=== PATIENT | male | born 1990 | race Asian ===

== ENCOUNTER 2020-04-08 16:35 | Outpatient (REF) | payer BC, SELFPAY ==
--- NOTE | 2020-04-08 | CT_ITS ---
EXAMINATION: CT CHEST WITHOUT CONTRAST CLINICAL INFORMATION: Pulmonary nodules COMPARISON: Previous chest CT August and September 2019 TECHNIQUE: Multidetector volumetric CT imaging of the chest was done. Axial MIP volume rendering provided. Sagittal and coronal reformatted images were obtained. This CT examination was performed using dose optimization techniques as appropriate, variously including the following: *Automated exposure control *Adjustment of mA and/or kV according to patient size (this includes techniques or standardized protocols for targeted exams where dose is matched to indication/reason for exam; i.e. 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 The previously identified pleural-based mass adjacent to the right lower lobe has been removed. The previously identified peripheral infiltrates and areas of increased groundglass attenuation seen throughout both lungs is no longer seen. MEDIASTINUM: The mediastinum is normal. PLEURA: There is no pleural effusion. No pleural mass or thickening. AXILLA: No lymphadenopathy. UPPER ABDOMEN: Unremarkable. OSSEOUS STRUCTURES: Unremarkable. CT/CT chest wo con IMPRESSION: New postsurgical changes to the right middle lobe. Previously identified peripheral infiltrates and areas of groundglass attenuation are no longer seen.
== END 2020-04-08 16:36 | disposition home or self-care (01) ==
LOC: HO.CT 16:35
PROVIDERS: Visit Provider Surgery
DX: R91.1 Solitary pulmonary nodule (principal)
CPT/HCPCS: 71250

== ENCOUNTER → 2020-05-03 09:04 | Outpatient (BNVA) | payer BC, SELFPAY | PROVIDERS: PCP Internal Medicine; Referring Provider Internal Medicine; Visit Provider Surgery | DX: D49.2 Neoplasm of unspecified behavior of bone, soft tissue, and skin (principal) | CPT/HCPCS: 99214 ==

== ENCOUNTER 2022-06-09 16:31 | Outpatient (REF) | payer OTHER, SELFPAY ==
--- NOTE | ~2022-06-09 | CT_ITS ---
EXAMINATION: CT CHEST WITHOUT CONTRAST CLINICAL INFORMATION: Neoplasm. COMPARISON: 04/08/2020 and studies dating back to 08/30/2019. TECHNIQUE: Multidetector volumetric CT imaging of the chest was done. Axial MIP volume rendering provided. Sagittal and coronal reformatted images were obtained. This CT examination was performed using dose optimization techniques as appropriate, variously including the following: *Automated exposure control *Adjustment of mA and/or kV according to patient size (this includes techniques or standardized protocols for targeted exams where dose is matched to indication/reason for exam; i.e. extremities or head) *Use of iterative reconstruction technique DLP: 207 mGy-cm FINDINGS: LUNGS: Central airways are patent. No significant bronchial wall thickening is seen. No bronchiectasis is noted. No emphysematous change seen. No confluent parenchymal disease is noted. There is postsurgical change seen within the right middle lobe. No suspicious lung nodules identified. MEDIASTINUM: Heart normal size. No pericardial effusion. No thoracic aortic aneurysm. Visualized portions of the thyroid gland unremarkable. CORONARY ARTERY CALCIFICATION: None visualized on this study. PLEURA: There is no pleural effusion. No pleural mass or thickening. AXILLA: No lymphadenopathy. UPPER ABDOMEN: Unremarkable. OSSEOUS STRUCTURES: Unremarkable. CT/CT chest wo IV con IMPRESSION: Status post right middle lobe surgery. No suspicious lung nodules identified. Fleischner guidelines were followed.
== END 2022-06-09 16:32 | disposition home or self-care (01) ==
LOC: HO.CT 16:31
PROVIDERS: PCP Family Medicine; Visit Provider Family Medicine
DX: D49.2 Neoplasm of unspecified behavior of bone, soft tissue, and skin (principal)
CPT/HCPCS: 71250

== ENCOUNTER 2022-11-10 10:35 | Outpatient (REF) | payer OTHER, SELFPAY ==
[2022-11-10 15:52] LABS: Influenza A PCR NEGATIVE (Negative); Influenza B PCR NEGATIVE (Negative); Resp Syncy Virus RNA Qual PCR NEGATIVE (Negative); SARS COV2 PCR INHOUSE NEGATIVE (Negative)
== END 2022-11-10 10:36 | disposition home or self-care (01) ==
LOC: HO.LAB 10:35
PROVIDERS: Visit Provider Physician Assistant
DX: Z20.822 Contact with and (suspected) exposure to COVID-19 (principal); B34.9 Viral infection, unspecified
CPT/HCPCS: 0241U

== ENCOUNTER 2023-02-25 16:07 | Outpatient (AMB) | payer OTHER, SELFPAY ==
[2023-02-25 16:17] VITALS: BP 116/72; PULSE 76; TEMP 36.7; O2SAT 98; BMI 28.9
--- NOTE | 2023-02-25 16:17 | MHC.OFFWIV ---
Intake Vital Signs 02/25/23 16:17 Height 5 ft 9 in Weight 196 lb BMI 28.9 BP 116/72 Blood Pressure Location Rt brachial Position Sitting Pulse 76 Pulse Source Pulse Oximeter Temp 98.1 F Temp Source Temporal Artery Scan Pulse Oximetry (%) 98 Oxygen Delivery Method Room Air Intake Visit Reasons: EST/bee sting on right hand Intake Note: Patient is here today for bee sting on Rt hand Patient Tobacco Use Status: Former Tobacco user Allergies No Known Allergies Allergy (Verified 02/25/23 16:17) Do you need a note to return to daycare/school/sports/work: Yes HPI HPI Comments History of Present Illness Details The patient presents to urgent care for evaluation of left hand swelling. He was stung by a wasp yesterday afternoon around 15:00. He states that it swelled a little bit yesterday took some Benadryl in the evening. He also developed some hives on his arm. He has an allergy to insect stings. The Benadryl alleviated some of the swelling and the hives. He did not take another dose this morning as he had to go to work. Throughout the day he noted that his hand became more swollen and red. His coworkers urged not to come in for evaluation. There is some mild achiness of the hand but no significant tenderness and no fever. [facility] Medical History History of COVID-19 (~08/2019) Personal history of nicotine dependence Solitary fibrous tumor Surgical History History of lobectomy of lung (~10/2019) Social History Patient Tobacco Use Status: Former Tobacco user Cigarette Packs Per Day: 1 e-Cigarette/Vaping Use: Never Used Second Hand Smoke Exposure: No Current occupational status: employed Current occupational exposures/hazards: No Cognitive needs: No Hearing needs: No Vision needs: No Review of Systems Eyes Reports no additional complaints ENT Reports Normal hearing present and Denies dysphagia Card Denies dyspnea and Denies slow heart rate Resp Denies cough and Denies dyspnea GI Denies dysphagia and Denies heartburn Denies dysuria Musc Denies tingling Skin/Breast Reports lesions, Denies skin ulcer and Denies unusual bruising Neuro Reports Normal hearing present, Denies Sensory deficit (Neuro), Denies tingling and Denies paresthesias Physical Exam Vital Signs: Last Vital Signs Temp 98.1 F 02/25/23 16:17 Pulse 76 02/25/23 16:17 BP 116/72 02/25/23 16:17 Pulse Ox 98 02/25/23 16:17 Oxygen Delivery Method Room Air 02/25/23 16:17 BMI result Body Mass Index 28.9 Const General: healthy appearing and no acute distress Resp Effort & Inspection: normal respiratory effort and able to speak in complete sentences Skin Other: Left hand dorsum aspect: Moderate soft tissue swelling and erythema. Minimal tenderness, no fluctuance. Slightly warm to the touch. Swelling extends to the wrist and then stops. Patient has full range of motion of the digits without eliciting tenderness. 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 He is right-hand dominant. Neuro Cranial nerves: Yes Normal hearing present Sensory Exam: No Sensory deficit (Neuro) Assessment & Plan Assessment & Plan (1) Insect sting: Code(s): T63.481A - Toxic effect of venom of other arthropod, accidental (unintentional), initial encounter Plan Left-handed 6 standing. I do not feel that this is infected at this time I think the amount of swelling is consistent with the staying however he reports it is worsening. Will recommend Benadryl 50 mg every 4 hours from tonight through tomorrow and re-evaluate tomorrow. 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 Coding Level of Care Code Est Pt Level 3 (66166) Diagnoses Insect sting T63.481A
== END 2023-02-25 16:37 | disposition home or self-care (01) ==
PROVIDERS: PCP Family Medicine; Visit Provider Emergency Medicine
DX: T63.481A Toxic effect of venom of other arthropod, accidental (unintentional), initial encounter (principal)
CPT/HCPCS: 99213

== ENCOUNTER 2023-11-11 15:26 | Outpatient (AMB) | payer OTHER, SELFPAY ==
--- NOTE | 2023-11-11 15:53 | MHC.PC.OV ---
Vital Signs 11/11/23 15:54 Height 5 ft 9 in Weight 200 lb BMI 29.5 BP 112/70 Blood Pressure Location Lt brachial Position Sitting Pulse 67 Pulse Source Pulse Oximeter Pulse Oximetry (%) 97 Oxygen Delivery Method Room Air Intake Visit Reasons: Physical Exam Intake Note: Patient is here for a physical today, would like sleep study referral, wakes up at around 3 am, and snoring, and headaches. Allergies venom-wasp Allergy (Mild, Verified 11/11/23 15:58) Swelling Medication List - Last Reconciled 11/11/23 by Nino Kwan MD No Known Home Meds Tobacco use date assessed: 11/11/23 Dental Screening Dental Screen Date: 11/11/23 Did you have a dental visit in the last 12 months?: Yes Did you have a dental problem in the last 6 months where you did not have access to dental care?: No Was dental information given to patient?: Patient has dentist HPI Physical Exam HPI Details 33 y/o male presents for a CPE with f/u labs and health maintenance. No recent labs to review. Pt is requesting a sleep study. He notes he has not been eating a healthy diet but he has been trying to make changes. Pt notes hx of an insect bite which caused his arm to swell. [facility] Medical History Personal history of nicotine dependence History of COVID-19 (~08/2019) Solitary fibrous tumor Surgical History History of lobectomy of lung (~10/2019) Social History Housing: House Patient Tobacco Use Status: Former Tobacco user Cigarette Packs Per Day: 1 e-Cigarette/Vaping Use: Never Used Second Hand Smoke Exposure: No Current occupational status: employed Current occupational exposures/hazards: No Cognitive needs: No Hearing needs: No Vision needs: No Questionnaire ELSA-7 AMB Questionnaire ELSA-7 Date ELSA - 7 assessed: 05/22/22 Source: Developed by Drs. Jaswinder Pavon, Alla Sheets, Paolo Salmon and colleagues, with an educational rory from [employer]. Review of Systems Const Denies chills, Denies fatigue, Denies fever(s), Denies headache(s) and Denies weakness Eyes Denies change in vision ENT Denies dizziness, Denies headache(s), Denies hearing loss, Denies nasal congestion, Denies sinus pain, Denies sinus pressure and Denies sore throat Card Denies chest pain, Denies lightheadedness, Denies dyspnea and Denies other (palpitations) Resp Denies cough, Denies dyspnea and Denies wheezing GI Denies abdominal pain, Denies melena, Denies hematochezia, Denies change in bowel habits, Denies dyspepsia and Denies nausea Denies hematuria and Denies dysuria Musc Denies abnormal gait, Denies myalgias, Denies arthralgias, Denies numbness and Denies tingling Skin/Breast Denies rash, Denies unusual bruising and Denies wounds Neuro Denies abnormal gait, Denies dizziness, Denies headache(s), Denies memory loss, Denies numbness, Denies Sensory deficit (Neuro), Denies tingling and Denies weakness Psych Denies anxiety, Denies depression and Denies memory loss Endo Denies cold intolerance, Denies fatigue, Denies heat intolerance, Denies polydipsia and Denies polyuria Wally/Lymph Denies easy bleeding and Denies easy bruising Aller/Immun Denies wheezing Physical exam (Primary Care) Vital Signs: Last Vital Signs Pulse 67 11/11/23 15:54 BP 112/70 11/11/23 15:54 Pulse Ox 97 11/11/23 15:54 Oxygen Delivery Method Room Air 11/11/23 15:54 BMI result Body Mass Index 29.5 Tobacco/Smoking Status: Tobacco use Status Tobacco use date assessed 11/11/23 11/11/23 16:02 Patient Tobacco Use Status Former Tobacco user 11/11/23 16:02 e-Cigarette/Vaping Use Never Used 11/11/23 16:02 Const General: no acute distress, well developed, alert and awake Nutritional Appearance: well nourished Orientation/consciousness: patient oriented x3 HENMT Head: Yes normocephalic and Yes atraumatic Ears: hearing grossly normal bilaterally and TM's normal bilaterally General nose exam: Normal external nose present and Normal nares present Mouth: Normal oral and palatal mucosa present and moist mucous membranes Teeth and gingiva: dentition normal Throat: Yes posterior oropharynx normal Eyes General: appearance normal, both eyes and all related structures Pupils: Equal, round and reactive pupils present and Pupil accommodation reflex normal EOM: EOMs intact bilaterally Neck Neck: Yes normal visual inspection, Yes no lymphadenopathy and Yes trachea midline Thyroid: Thyroid normal Carotids: no bruits Lymphatic: no lymphadenopathy noted Chest Chest palpation & inspection: normal inspection of the chest Resp Effort & Inspection: normal respiratory effort Auscultation: clear to auscultation bilaterally Cardio Rate: regular rate Rhythm: regular rhythm Heart sounds: S1 normal heart sound present, S2 normal heart sound present, no gallops, no murmurs and no rubs Bruits: no abdominal aortic bruits and no carotid bruits GI Palpation (GI): No Abdominal aortic bruit present, Soft to palpation, nontender, No hepatosplenomegaly present and No Rebound tenderness present Auscultation: normal bowel sounds General: Yes no CVA tenderness Back/Spine/Pelvis Back: no CVA tenderness Cervical Spine: cervical ROM normal and No Cervical spine tenderness Thoracic/Lumbar Spine: thoraco-lumbar ROM normal, No pain with thoraco-lumbar ROM, No thoracic spinal tenderness and No lumbar spinal tenderness Skin Lesions: no lesions Rashes: no rashes Trauma: no lacerations or abrasions Wounds: no wounds Nails: normal Neuro General: patient oriented x3 Cranial nerves: Yes Equal, round and reactive pupils present Cognition (Neuro): normal cognition Gait exam (Neuro): Normal gait present Motor exam (neuro): 5/5 motor strength present throughout Sensory Exam: No Sensory deficit (Neuro) Deep tendon reflexes (DTR's): Right patellar reflex intensity grade: 2+ and Left patellar reflex intensity grade: 2+ Extrem General: Yes normal to inspection and No edema Psych Appearance: grossly normal Affect: normal affect Attitude: cooperative Thought process: Normal thought process present Assessment and Plan Assessment & Plan (1) Adult general medical exam: Code(s): Z00.00 - Encounter for general adult medical examination without abnormal findings Plan: 33-year-old?male?presents?for?complete?physical?exam Encouraged?healthy?diet?with?active?lifestyle?and?plenty?of?exercise (2) Sleep apnea: Code(s): G47.30 - Sleep apnea, unspecified Plan: Referred?to?Sleep?Medicine (3) Allergic sinusitis: Code(s): J30.9 - Allergic rhinitis, unspecified Plan: Continue?Benadryl?at?night?and?can?try?a?nasal?steroid (4) Allergic reaction to wasp sting: Code(s): T63.461A - Toxic effect of venom of wasps, accidental (unintentional), initial encounter Plan: Patient?had?a?significant?wasp?sting?last?year?which?caused?his?entire?left?arm?to?swell Will?give?him?an?EpiPen - use?EpiPen?if?any?breathing?problems?swallowing?difficulties?or?swelling?of?lips?tongue?or?throat?and?go?to?ED (5) Solitary fibrous tumor: Comment: (s/p RML wedge resection 10/2019) Code(s): D49.2 - Neoplasm of unspecified behavior of bone, soft tissue, and skin Plan: Former?smoker?and?lung?nodules?with?right?middle?lobe?wedge?resection?in?2019 Follow-up?CT?scan?last?year?was?stable Had?referred?him?back?to?his?thoracic?surgeon?for?follow-up?but?he?was?never?called Will?make?referral?again Orders: Orders TSH reflex Free T4 Today Z00.00 - Encounter for general adult medical examination without abnormal findings Triiodothyronine T3 Total Today E03.9 - Hypothyroidism, unspecified Comprehensive [place]. Panel Fast Today Z00.00 - Encounter for general adult medical examination without abnormal findings Complete Blood Count Auto Diff Today Z00.00 - Encounter for general adult medical examination without abnormal findings Lipid Panel Today Z00.00 - Encounter for general adult medical examination without abnormal findings Microalbumin, Random (w Creat) Today I10 - Essential (primary) hypertension UA and rflx microscopic Today Z00.00 - Encounter for general adult medical examination without abnormal findings Medications: New epinephrine (EpiPen 2-Felix) 0.3 mg (0.3 mL) IM Q4H 30 days PRN 2 ea 2RF anaphylaxis fluticasone propionate 50 mcg/actuation (Flonase Allergy Relief) administer into each nostril 1 spray intranasal Q12H 30 days 16 grams 2RF Coding Level of Care Code Est Pt Level 3 (49321) Est Pt Prev Care 18-39y(98679) Diagnoses Adult general medical exam Z00.00 Sleep apnea G47.30 Allergic sinusitis J30.9 Allergic reaction to wasp sting T63.461A Solitary fibrous tumor D49.2
[2023-11-11 15:54] VITALS: BP 112/70; PULSE 67; O2SAT 97; BMI 29.5
== END 2023-11-11 16:29 | disposition home or self-care (01) ==
PROVIDERS: PCP Family Medicine; Visit Provider Family Medicine
DX: Z00.00 Encounter for general adult medical examination without abnormal findings (principal); G47.30 Sleep apnea, unspecified; J30.9 Allergic rhinitis, unspecified; T63.461A Toxic effect of venom of wasps, accidental (unintentional), initial encounter; D49.2 Neoplasm of unspecified behavior of bone, soft tissue, and skin
CPT/HCPCS: 99213; 99395

== ENCOUNTER 2023-11-26 16:27 | Outpatient (REF) | payer OTHER, SELFPAY ==
[2023-11-26 16:41] LABS: MANUAL DIFF FLAG NO
[2023-11-26 17:06] LABS: Basophils Absolute Auto 0.1 X10*3/uL (0.0-0.2); Basophils Percent Auto 0.7 % (0-2); Eosinophils Absolute Auto 0.2 X10*3/uL (0.0-0.4); Eosinophils Percent Auto 2.3 % (0-4); Hematocrit 49.6 % (42.0-52.0); Hemoglobin 16.4 g/dl (14.0-18.0); Imm Gran Abs Auto 0.02 X10*3/uL (0.00-0.03); Imm Gran Pct Auto 0.3 % (0.0-0.4); Lymphocytes Absolute Auto 2.2 X10*3/uL (1.2-4.9); Lymphocytes Percent Auto 28.8 % (20-40); Mean Corpuscular HGB Conc 33.1 g/dl (31.0-36.0); Mean Corpuscular Hemoglobin 26.8 pg (27.0-33.0); Mean Platelet Volume 11.8 fL (9.4-12.4); Monocytes Absolute Auto 0.6 X10*3/uL (0.1-1.2); Monocytes Percent Auto 7.3 % (2-11); Neutrophils Absolute Auto 4.6 x10*3/uL (2.0-8.3); Neutrophils Percent Auto 60.6 % (45-73); Platelet Count 191 X10*3/uL (160-400); Red Blood Count 6.12 X10*6/uL (4.60-5.80); Red Cell Distribution Width 12.8 % (11.0-16.0); White Blood Count 7.5 X10*3/uL (4.8-10.8)
[2023-11-26 17:38] LABS: Alanine Aminotransferase 51 U/L (0-40); Albumin Level 4.7 g/dL (3.5-5.0); Alkaline Phosphatase 72 U/L (39-117); Anion Gap 14 (12-20); Aspartate Amino Transferase 32 U/L (5-37); Bilirubin Total 1.5 mg/dL (0.0-1.0); Blood Urea Nitrogen 16 mg/dL (9-16); Calcium 9.8 mg/dL (8.4-10.2); Carbon Dioxide 24 mmol/L (22-29); Chloride 106 mmol/L (96-108); Cholesterol 168 mg/dL (<200); Estimated Glomerular Filt Rate > 60; Glucose Fasting 80 mg/dL (60-99); HDL Cholesterol 35 mg/dL (>40); Potassium 3.6 mmol/L (3.3-5.1); Sodium 140 mmol/L (135-145); Total Protein 8.1 g/dL (6.5-8.0); Triglycerides 436 mg/dL (<150)
[2023-11-26 17:50] LABS: Creatinine Urine 295.03 mg/dL; Microalbum/Creatinine Ratio Ur 11.5 ug/mg cr (<30)
[2023-11-26 17:54] LABS: TSH reflex Free T4 0.95 uIU/mL (0.32-4.0)
[2023-11-26 18:10] LABS: Appearance Urine Clear; Color Urine Dark Yellow; Glucose Urine UA Negative (Negative); Leukocyte Esterase Urine Negative (Negative); Nitrite Urine Negative (Negative); Specific Gravity - Urine 1.025 (1.005-1.025); Urine Blood Negative (Negative); Urine Ketones 40 mg/dL (Negative); Urine Protein Trace mg/dL (Neg-Trace)
[2023-11-27 23:43] LABS: Triiodothyronine T3 Total 105 ng/dL (76-181)
== END 2023-11-26 16:28 | disposition home or self-care (01) ==
LOC: HO.LAB 16:27
PROVIDERS: PCP Family Medicine; Visit Provider Family Medicine
DX: Z00.00 Encounter for general adult medical examination without abnormal findings (principal); E03.9 Hypothyroidism, unspecified; I10 Essential (primary) hypertension
CPT/HCPCS: 36415; 80053; 80061; 81003; 82043; 82570; 84443; 84480; 85025

== ENCOUNTER → 2023-12-30 16:00 | Outpatient (AMB) | payer OTHER, SELFPAY ==
--- NOTE | 2023-12-30 16:00 | A.OFFPC_ITS ---
Intake Visit Reasons: f/u CPE-labs via telemedicine Intake Note: Patient is here to follow up on Lab results. Pharmacy Informatics Manager Required: No Production Control Pegboard Clerk: Not Required per policy Accompanied by: Self / Same As Patient Allergies venom-wasp Allergy (Mild, Verified 12/30/23 16:01) Swelling Tobacco use date assessed: 11/11/23 Dental Screening Dental Screen Date: 11/11/23 HPI f/u CPE-labs via telemedicine HPI Details 33 y/o male presents to f/u labs via tel emedicine. Recent labs reviewed. Elevated triglycerides. [facility] Medical History Personal history of nicotine dependence History of COVID-19 (~08/2019) Solitary fibrous tumor Surgical History History of lobectomy of lung (~10/2019) Social History (Updated 12/30/23 @ 16:02 by BJ Arellano) Housing: House Alcohol intake: current Alcohol intake frequency: a few times a month Patient Tobacco Use Status: Former Tobacco user Cigarette Packs Per Day: 1 e-Cigarette/Vaping Use: Never Used Second Hand Smoke Exposure: No service: No Current occupational status: employed Current occupational exposures/hazards: No Cognitive needs: No Hearing needs: No Vision needs: No Questionnaire PHQ-9 Over the last 2 weeks, how often have you been bothered by any of the following problems? 1. Little interest or pleasure in doing things: not at all 2. Feeling down, depressed, or hopeless: not at all 3. Trouble falling or staying asleep, or sleeping too much: not at all 4. Feeling tired or having little energy: not at all 5. Poor appetite or overeating: not at all 6. Feeling bad about yourself - or that you are a failure or have let yourself or your family down: not at all 7. Trouble concentrating on things, such as reading the newspaper or watching television: not at all 8. Moving or speaking so slowly that other people could have noticed. Or the opposite - being so fidgety or restless that you have been moving around a lot more than usual: not at all 9. Thoughts that you would be better off or of hurting yourself in some way: not at all Total score: 0 Depression Screening Interpretation: Negative Depression Screening Done: Yes Source: Developed by Drs. Jaswinder Pavon, Paolo Rollins and colleagues, with an educational rory from [employer]. Thrive Questionnaire Date Thrive assessed: 12/30/23 I am a: Patient What is your living situation today?: I have a steady place to live Within the past 12 months, did the food you bought not last and you didn't have the money to get more?: Never true Within the past 12 months, did you worry whether your food would run out before you got money to buy more?: Never true Do you have trouble paying for medicines?: No Do you have trouble getting transportation to medical appointments?: No Do you have trouble paying your heating and electricity bill?: No Do you have trouble taking care of your child, family member or friend?: No Do you have trouble with day-to-day activities such as bathing, preparing meals, shopping, managing finances, etc.?: No Are you currently unemployed and looking for a job?: No Are you interested in more education?: No Currently or been in a relationship where the following occur: No concerns reported THRIVE Score: 0 AUDIT C Alcohol Use Questionnaire (AUDIT-C) 1. How often do you have a drink containing alcohol?: Monthly or less 2. How many drinks containing alcohol do you have on a typical day when you are drinking?: 1 or 2 Total Score: 1 ELSA-7 AMB Questionnaire ELSA-7 Date ELSA - 7 assessed: 12/30/23 Feeling nervous, anxious, or on edge: 0 = Not at all Not being able to stop or control worryin = Not at all Worrying too much about different things: 0 = Not at all Trouble relaxin = Not at all Being so restless that it is hard to sit still: 0 = Not at all Becoming easily annoyed or irritable: 0 = Not at all Feeling afraid as if something awful might happen: 0 = Not at all Total ELSA-7 score (0-4 normal; 5-9 mild; 10-14 moderate; 15-21 severe): 0 Source: Developed by Alla Fritz Kurt Kroenke and colleagues, with an educational rory from [employer]. Review of Systems Const Denies chills, Denies fatigue, Denies fever(s), Denies headache(s) and Denies weakness ENT Denies dizziness and Denies headache(s) Card Denies dyspnea Resp Denies cough, Denies dyspnea, Denies wheezing and Denies other (shortness of breath) Musc Denies numbness and Denies tingling Neuro Denies dizziness, Denies headache(s), Denies numbness, Denies tingling and Denies weakness Psych Denies anxiety and Denies depression Endo Denies fatigue Aller/Immun Denies wheezing Physical exam (Primary Care) Tobacco/Smoking Status: Tobacco use Status Tobacco use date assessed 11/11/23 12/30/23 16:05 Patient Tobacco Use Status Former Tobacco user 12/30/23 16:05 e-Cigarette/Vaping Use Never Used 12/30/23 16:05 PHQ-9: PHQ-9 Score PHQ-9: Total score 0 12/30/23 16:33 Depression Screening Interpretation: Negative Thrive Assessment: Date of Thrive Assessment Date Thrive assessed 12/30/23 12/30/23 16:05 Currently or been in a relationship where the following occur: No concerns reported Telehealth Telehealth Telehealth Platform: Telephone Location of provider rendering services: practice address Location of patient: address on file Patient Identification confirmed using: Name, : Yes Telehealth method: voice only Patient verbally consented to treatment: Yes Patient verbally consented to billing insurance company: Yes Patient informed of any privacy concerns related to visit: Yes Minutes spent on Phone/Video with Pt.: 7 Assessment and Plan Assessment & Plan (1) Hypertriglyceridemia: Code(s): E78.1 - Pure hyperglyceridemia Plan: Triglycerides?are?too?high Start?fenofibrate Recheck?lipids?prior?to?next?visit (2) Elevated liver enzymes: Code(s): R74.8 - Abnormal levels of other serum enzymes Plan: History?of?elevated?liver?enzymes Liver?enzymes?are?mildly?elevated?and?he?will?recheck?these?prior?to?next?visit May?need?follow-up?with?ultrasound?of?liver (3) Sleep apnea: Code(s): G47.30 - Sleep apnea, unspecified Plan: Had?referred?patient?to?Sleep?Medicine?but?he?has?not?been?called?by?them.??I?ga ve?him?their?phone?number?encouraged?him?to?call?them?for?an?appointment (4) Solitary fibrous tumor: Comment: (s/p RML wedge resection 10/2019) Code(s): D49.2 - Neoplasm of unspecified behavior of bone, soft tissue, and skin Plan: Patient?has?not?followed?up?with?thoracic?surgeon I?had?made?a?referral?but?he?says?he?has?not?been?contacted.??I?gave?him?the?shabana ne?number?and?advised?him?to?call?them. Orders: Orders Comprehensive [place]. Panel Fast Today R74.8 - Abnormal levels of other serum enzymes, Z00.00 - Encounter for general adult medical examination without abnormal findings Lipid Panel Today E78.1 - Pure hyperglyceridemia, Z00.00 - Encounter for general adult medical examination without abnormal findings Hepatitis B,C Profile Today R74.8 - Abnormal levels of other serum enzymes, Z11.3 - Encounter for screening for infections with a predominantly sexual mode of transmission Medications: New fenofibrate 160 mg PO DAILY 30 days 30 tabs 2RF Coding Level of Care Code Tele Est Pt Level 2 (79669) Diagnoses Hypertriglyceridemia E78.1 Elevated liver enzymes R74.8 Sleep apnea G47.30 Solitary fibrous tumor D49.2
== END ==
LOC: HO.HMGFM 16:00
PROVIDERS: PCP Family Medicine; Visit Provider Family Medicine
DX: E78.1 Pure hyperglyceridemia (principal); R74.8 Abnormal levels of other serum enzymes; G47.30 Sleep apnea, unspecified; D49.2 Neoplasm of unspecified behavior of bone, soft tissue, and skin
CPT/HCPCS: 99212

== ENCOUNTER 2024-11-17 22:25 | Emergency (ER) | payer OTHER, SELFPAY ==
--- NOTE | ~2024-11-17 | XR_ITS ---
CLINICAL HISTORY: pain, injury 3 views right foot Comparison: None Findings: There is no fracture or dislocation. Joint spaces appear normal. There is no radiopaque foreign body. Impression: Unremarkable right foot radiographs. This document has been electronically signed by: Vikram Soliman MD on 11/17/2024 23:34:25
--- NOTE | ~2024-11-17 | XR_ITS ---
CLINICAL HISTORY: pain, injury 3 views right ankle Comparison: None Findings: There is mild lateral soft tissue swelling. There is no acute fracture or dislocation. Cortical thickening in the distal fibular shaft may be related to an old healed fracture. Impression: No acute osseous abnormality. This document has been electronically signed by: Vikram Soliman MD on 11/17/2024 23:34:54
[2024-11-17 22:39] VITALS: BP 136/96; PULSE 73; RESP 16; TEMP 35.9; O2SAT 99; BMI 62.0
--- NOTE | 2024-11-17 23:30 | PC.NURSE ---
walks steadily with boot. signed and verbalized understanding of d/c instructions
--- NOTE | 2024-11-17 23:34 | ED_ITS ---
HPI - General Adult General Chief complaint: Extremity Injury, Lower Stated complaint: Right ankle bothers Time Seen by Provider: 11/17/24 23:34 Source: patient Mode of arrival: ambulatory Limitations: no limitations History of Present Illness ED Provider: Leda Clark PA-C HPI narrative: Patient is a 34 year old assigned male at with no reported medical history presenting to the emergency department today with right ankle pain. Patient states that 2 weeks ago he injured his right ankle and did not have it examined but it has gotten worse as he continues to bear weight on it. Patient denies any dizziness, lightheadedness, abdominal pain, nausea, vomiting, fever, chills, blurry vision, double vision, loss of vision, chest pain, difficulty breathing, shortness of breath, back pain, night sweats, pain with urination, increased urinary frequency, increased urinary urgency, blood in his urine or stool, syncope or a near syncopal episode, bowel incontinence, bladder incontinence, or any other complaints at this time. Onset (ago): week(s) (2) Relieving factors: none Exacerbating factors: movement Associated symptoms: denies other symptoms Treatments prior to arrival: none Related Data Previous Rx's ?Medication ?Instructions ?Recorded epinephrine 0.3 mg/0.3 mL 0.3 mg (0.3 mL) IM Q4H PRN 0 11/11/23 injection, auto-injector (EpiPen anaphylaxis 30 days # 2 ea 2-Felix) fluticasone propionate 50 1 spray intranasal Q12H 30 d ays 11/11/23 mcg/actuation nasal #16 grams spray,suspension (Flonase Allergy Relief) fenofibrate 160 mg tablet 160 mg PO DAILY 30 days #30 tabs 12/30/23 Allergies Allergy/AdvReac Type Severity Reaction Status Date / Time venom-wasp Allergy Mild Swelling Verified 11/17/24 22:40 Review of Systems Constitutional: Constitutional: Reports no additional constitutional complaints, Denies chills, Denies fever(s) and Denies night sweats Eyes: Eyes: Reports no additional eye complaints, Denies blurry vision, Denies change in vision, Denies diplopia, Denies eye discharge, Denies loss of vision and Denies eye pain ENT: Denies dizziness Cardiovascular: Cardiovascular: Reports no additional cardiovascular complaints, Denies chest pain, Denies lightheadedness, Denies Loss of Consciousness and Denies dyspnea Respiratory: Respiratory: Reports no additional respiratory complaints and Denies dyspnea Gastrointestinal: Gastrointestinal: Reports no additional gastrointestinal complaints, Denies abdominal pain, Denies melena, Denies hematochezia, Denies change in bowel habits and Denies change in stool character Genitourinary: Genitourinary: Reports no additional male genitourinary complaints, Denies hematuria, Denies oliguria, Denies difficulty urinating, Denies dysuria, Denies urinary frequency, Denies urinary hesitancy, Denies urinary incontinence and Denies urinary urgency Musculoskeletal: Musculoskeletal: Reports no additional musculoskeletal comp laints, Denies numbness and Denies tingling Comments: right ankle pain Neurologic: Denies dizziness, Denies loss of vision, Denies numbness and Denies tingling Psychiatric: Psychiatric: Reports no additional psychiatric complaints Endocrine: Endocrine: Reports no additional endocrine complaints Hematologic/Lymphatic: Hematologic/Lymphatic: Reports no additional hematologic/lymphatic complaints Allergic/Immunologic: Allergic/Immunologic: Reports no additional allergic/immunologic complaints [facility] Past Medical History Attestation statement: The following information was validated with the patient. Source: old records reviewed and nursing notes reviewed Medical History Personal history of nicotine dependence History of COVID-19 (~08/2019) Solitary fibrous tumor Surgical History History of lobectomy of lung (~10/2019) Social History Social History Housing: House Alcohol intake: current Alcohol intake frequency: a few times a month Patient Tobacco Use Status: Former Tobacco user Cigarette Packs Per Day: 1 e-Cigarette/Vaping Use: Never Used Second Hand Smoke Exposure: No Advance Directives: No Advance Directives Information Provided: No service: No Current occupational status: employed Current occupational exposures/hazards: No Cognitive needs: No Hearing needs: No Vision needs: No Physical Exam ED Vital Signs: Vital Signs - 24 hr 11/17/24 22:39 Temperature 96.7 F L Pulse Rate 73 Respiratory Rate 16 Blood Pressure 136/96 H Pulse Oximetry 99 Oxygen Delivery Method Room Air BMI result Body Mass Index 62.0 Const General: cooperative, no acute distress, alert and awake Nutritional Appearance: well nourished Orientation/consciousness: patient oriented x3 HENMT Head: Yes normal to inspection and Yes atraumatic Ears: hearing grossly normal bilaterally and external ears normal General nose exam: Normal external nose present, no nasal discharge noted and no epistaxis Face and sinus: Yes normal facial exam, No abrasion and No laceration Mouth: Normal oral and palatal mucosa present, no drooling and no muffled voice Eyes General: appearance normal, both eyes and all related structures Periorbital: periorbital findings normal Eyelids: Yes eyelids normal Conjunctivae: conjunctivae normal Pupils: Equal, round and reactive pupils present EOM: EOMs intact bilaterally Neck Neck: Yes normal visual inspection, Yes full ROM and Yes no lymphadenopathy Resp Effort & Inspection: normal respiratory effort and able to speak in complete sentences Neuro General: patient oriented x3, moves all extremities and CN's II-XI intact bilaterally Cranial nerves: Yes Equal, round and reactive pupils present Cognition (Neuro): normal cognition Extrem General: Yes normal to inspection, Yes full ROM and Yes capillary refill normal Psych Appearance: grossly normal Mental Status: mental status grossly normal Affect: normal affect Attitude: cooperative Thought process: Normal thought process present Thought content: Normal thought content present Insight: Good insight present (Psych) Procedures Orthopedic Splinting/Casting Injury #1: Side: right Lower Extremity Injury Location: ankle Lower Extremity Immobilizer: boot orthosis Medical Decision Making Medical Decision Making MDM Narrative: Patient is a 34 year old assigned male at with no reported medical history presenting to the emergency department today with right ankle pain. Patient's physical exam was unremarkable. Patient's right ankle x-ray showed no acute process but did show evidence of an old / healing fibular fracture. Given the patient's delay in treatment 2 weeks post injury - I suspect this is from that incident. I explained my physical exam findings as well as all test results to the patient. I answered all questions asked by the patient. Patient's right ankle was placed in a tall walking boot, without incident. Patient's PMS was intact prior to and after boot placement. I stressed the importance of the patient taking his medication as directed (either prescribed or as the over the counter packaging recommends). I stressed the importance of the patient following up with his primary care provider and the orthopedic team. I stressed the importance of the patient returning to the emergency department immediately if his symptoms were to worsen or if he were to develop any dizziness, shortness of breath, difficulty breathing, chest pain, blurry vision, loss of vision, nausea, vomiting, abdominal pain, fever, chills, back pain, or any other complaints. Patient verbalized agreement and understanding with this treatment plan and discharge. Differential Diagnosis Differential Diagnoses: The differential diagnosis associated with the presentation includes R ankle sprain Right ankle strain Right ankle fracture Right fibular fracture Admission/Observation Consideration of admission/observation: Escalation of care including admission/observation considered Patient would have been admitted to the hospital had his work up had any findings where hospital admission was appropriate and his clinical presentation warranted hospital admission. Independent Interpretation I performed an independent interpretation of an: Plain X-Ray Interpretation: My interpretation is in agreement with the radiologist's impression of these imaging studies. CLINICAL HISTORY: pain, injury 3 views right foot Comparison: None Findings: There is no fracture or dislocation. Joint spaces appear normal. There is no radiopaque foreign body. Impression: Unremarkable right foot radiographs. This document has been electronically signed by: Vikram Soliman MD on 11/17/2024 23:34:25 Dictated By: Vikram Soliman MD Signed By: Electronically signed by Vikram Soliman MD 11/17/24 2335 CLINICAL HISTORY: pain, injury 3 views right ankle Comparison: None Findings: There is mild lateral soft tissue swelling. There is no acute fracture or dislocation. Cortical thickening in the distal fibular shaft may be related to an old healed fracture. Impression: No acute osseous abnormality. This document has been electronically signed by: Vikram Soliman MD on 11/17/2024 23:34:54 Dictated By: Vikram Soliman MD Signed By: Electronically signed by Vikram Soliman MD 11/17/24 0721 Radiology Impression Discussion of test interpretation with radiology: I have reviewed the radiologist's reading. Discharge Plan Discharge Clinical Impression: Closed fibular fracture Patient Disposition: Home, Self-Care Instructions: Leg Fracture (ED) Additional Instructions: Your x-ray showed evidence of an old / healing fibular fracture - given your symptoms it is possible this break / fracture originally occurred at the time of your incident 2 weeks ago. It is healing well and therefore we placed you in a tall walking boot. Wear the walking boot when ambulating. Follow up with your primary care provider and the orthopedic team. Return to the emergency department immediately if your symptoms worsen or if you develop any numbness, tingling, dizziness, shortness of breath, difficulty breathing, chest pain, blurry vision, loss of vision, nausea, vomiting, abdominal pain, fever, chills, back pain, or any other complaints. Please see the information below about our Patient Portal. If you are not yet enrolled in the [facility] Patient Portal, you will receive an enrollment email invitation following your visit to any [facility] setting. You may also self-enroll in the Patient Portal by visiting our website: [email or web address] The following information is required to access the Patient Portal: - Your [facility] Medical Record Number - Your personal home email address (must match what is in your electronic medical record, Registration staff can assist with this) - Name - Date of Capabilities of the Patient Portal: - Message some providers - View upcoming appointments - Access your health summary, medical history, and visit history - View current conditions and allergies - View procedure and lab results - View your medications, including guidelines, side effects, and precautions - Complete pre-appointment questionnaires requested by your provider - Ready summary reports of your office visits and procedures To access the Patient Portal Mobile [employer], follow these directions: - Search [employer] in the [employer]ios Store or Google Play Store - Download the Rios - Search for [facility] - Enter your login/password Prescriptions: No Action epinephrine [EpiPen 2-Felix] 0.3 mg/0.3 mL auto-injector 0.3 mg IM Q4H PRN (Reason: anaphylaxis) 30 Days Qty: 2 2RF fluticasone propionate [Flonase Allergy Relief] 50 mcg/actuation spray,suspension 1 spray intranasal Q12H 30 Days Qty: 16 2RF Rx Instructions: administer into each nostril fenofibrate 160 mg tablet 160 mg PO DAILY 30 Days Qty: 30 2RF Referrals: [facility] [Provider Group] Referral Note: Call to establish and follow up with the orthopedic team. Nino Kwan MD [Primary Care Provider, Internal Medicine] Print Language: Turkish
[2024-11-18 01:07] VITALS: BP 126/79; PULSE 78; RESP 16; TEMP 36.8; O2SAT 98
== END 2024-11-18 | disposition home or self-care (01) ==
PROVIDERS: Emergency Provider Emergency Medicine Emergency Medical Services; PCP Family Medicine
DX: S82.401A Unspecified fracture of shaft of right fibula, initial encounter for closed fracture (principal); M79.671 Pain in right foot; X58.XXXA Exposure to other specified factors, initial encounter; Y93.9 Activity, unspecified; Y92.9 Unspecified place or not applicable; Y99.8 Other external cause status; Z87.891 Personal history of nicotine dependence
CPT/HCPCS: 29515; 73610; 73630; 99283

== ENCOUNTER → 2024-11-17 23:10 | Outpatient (BNV) | payer OTHER, SELFPAY | PROVIDERS: Emergency Provider Emergency Medicine Emergency Medical Services; PCP Family Medicine; Visit Provider Radiology Diagnostic Radiology | DX: S99.911A Unspecified injury of right ankle, initial encounter (principal); M25.571 Pain in right ankle and joints of right foot; S99.921A Unspecified injury of right foot, initial encounter; M79.671 Pain in right foot | CPT/HCPCS: 73610; 73630 ==

== ENCOUNTER 2024-12-05 08:37 | Outpatient (AMB) | payer OTHER, SELFPAY ==
--- NOTE | 2024-12-05 08:40 | MHC.OFFVIS ---
Intake Visit Reasons: ED-RT Closed fibular fracture Intake Note: Sue is a 34 year old male who presents today for an ER follow up of right closed fibular fracture. Patient was seen at [facility] ER on 11/17/24 due to ongoing pain for 2 weeks that had been increasing with weight bear. X-rays were taken and he was placed in a tall walking boot. Patient reports that he discontinue use of boot and is now using a ankle brace that has been providing compression. He has pain at the lateral aspect of ankle with certain movements of his foot. No numbness or tingling. Allergies venom-wasp Allergy (Mild, Verified 12/05/24 08:43) Swelling HPI HPI ED-RT Closed fibular fracture: Details: 34-year-old gentleman presents to the office today for an injury he sustained to his right ankle approximately 1 month ago. He states he was jumping up and down and he felt a pain in the right ankle. He denies injury such as twisting or falling. Two weeks after that onset of pain he was seen in the emergency department where x-rays were obtained and he was placed in a boot. He discontinued the use of the boot and bought an [id number] ankle support brace which has been helping however he continues to have some discomfort with any type of prolonged standing climbing or impact activity. [facility] Medical History Personal history of nicotine dependence History of COVID-19 (~08/2019) Solitary fibrous tumor Surgical History History of lobectomy of lung (~10/2019) Social History Housing: House Alcohol intake: current Alcohol intake frequency: a few times a month Patient Tobacco Use Status: Former Tobacco user Cigarette Packs Per Day: 1 e-Cigarette/Vaping Use: Never Used Second Hand Smoke Exposure: No service: No Current occupational status: employed Current occupational exposures/hazards: No Cognitive needs: No Hearing needs: No Vision needs: No Review of Systems Const All systems reviewed & are unremarkable except as noted in HPI and below Physical Exam Const General: cooperative and no acute distress Orientation/consciousness: patient oriented x3 Resp Effort & Inspection: normal respiratory effort and able to speak in complete sentences Cardio Peripheral pulses: Peripheral pulses 2+ throughout Neuro General: patient oriented x3 Extrem Other: Right ankle is normal to inspection. No tenderness to palpation over the mediolateral or syndesmosis. He has full range of motion of the ankle without crepitus or laxity. No pain with inversion or eversion with and without resistance. Neurovascularly intact. Results Reviewed Results Reviewed: X-rays of the right foot and ankle obtained on 11/17/2024 are negative for any acute or chronic abnormalities. Assessment & Plan Assessment & Plan (1) Right ankle sprain: Code(s): S93.401A - Sprain of unspecified ligament of right ankle, initial encounter Category: Medical Plan: I explained to the patient there is no evidence of fractures to the ankle or foot. We will treat this as a right ankle sprain and have him begin a course of physical therapy to work on strengthening conditioning exercises. I encouraged him to gradually increase his impact type activity to allow for resolution of symptoms. He was fit for a lace-up ankle brace in the office today which he will wear with activities. An order for physical therapy has been placed and he will see me back if symptoms persist or worsen otherwise follow up as needed. Orders: Orders PT Evaluation and Treatment Today S93.401A - Sprain of unspecified ligament of right ankle, initial encounter Coding Level of Care Code New Pt Level 3 (15258) Complex EM visit Add On G2211 Diagnoses Right ankle sprain S93.401A
--- OUTSIDE RECORDS SUMMARY | 2024-12-05 08:50 | XMS_ITS | Clinical Summary ---
Author Organization [facility] ity Address [address] [place] [address] Care Team Providers Care Fisher Trot Line Name Role Phone Unavailable Primary Care Provider Unavailabl e Social History Tobacco Use Types Packs/Day Years Used Date Smoking Tobacco: Never Assessed Sex and Gender Information Value Date Recorded Sex Assigned at Not on file Legal Sex Male 12:58 AM EST Gender Identity Not on file Sexual Orientation Not on file Plan of Treatment Health Maintenance Due Date Last Done Comments DTaP,Tdap,and Td Vaccines (1 - Tdap) 02/03/2007 Hepatitis B Vaccines (1 of 3 - 19+ 3-dose series) 02/03/2007 COVID-19 Vaccine ( - 2023-2 5 season) 2024 Influenza Vaccine (#1) 2025 HIB Vaccines Aged Out No longer eligi ble based on patient's age to complete this topic HPV Vaccines Aged Out No longer eligi ble based on patient's age to complete this topic Hepatitis A Vaccines Aged Out No long er eligible based on patient's age to complete this topic IPV Vaccines Aged Out No longer eligi ble based on patient's age to complete this topic MMR Vaccines Aged Out No longer eligi ble based on patient's age to complete this topic Meningococcal ACWY Vaccine Aged Out N o longer eligible based on patient's age to complete this topic Meningococcal B Vaccine Aged Out No l onger eligible based on patient's age to complete this topic Pneumococcal Vaccine: Pediat rics (0 to 5 Years) and At-Risk Patients (6 to 49 Years) Aged Out No longer eligible b ased on patient's age to complete this topic RSV Immunization Patients Un vipul 20 months Aged Out No longer eligible b ased on patient's age to complete this topic Varicella Vaccines Aged Out No longer eligible based on patient's age to complete this topic
== END 2024-12-05 09:33 | disposition home or self-care (01) ==
LOC: HO.HOS 08:38
PROVIDERS: PCP Family Medicine; Visit Provider Physician Assistant
DX: S93.401A Sprain of unspecified ligament of right ankle, initial encounter (principal)
CPT/HCPCS: 99203; G2211

== ENCOUNTER 2025-01-23 07:51 | Outpatient (RCR) | payer OTHER, SELFPAY ==
--- NOTE | 2024-12-14 09:25 | MHC.PT.EP ---
[facility] [place] Office [place] Office [place] Office [address] Nabor Mercado [address] [phone] F: [phone] F: [phone] F: [phone] F: [phone] Physical Therapy Plan of Care Date of Evaluation: 12/14/24 Date of Surgery: Diagnosis: sprain of unspecified ligament of R ankle R ankle sprain, ROM, gentle strength, proprioception training Assessment: 34 y/o male s/p R ankle sprain and healing fibular fx sustained 4-6weeks ago while jumping. He wore an air brace for one week and now dons a lace-up brace. Currently pain with wearing work boots, walking, jumping, and prolonged standing. Examination shows decreased R ankle strength, decreased ROM, pain, and impaired gait pattern. Recommend PT 1x/week for 6 weeks to address impairments, implement HEP, and optimize functional mobility. Frequency and Duration: The patient will be seen 1x/week for 6 weeks Short Term Goals: 3 weeks I with HEP Shelter Goals: 6 weeks I with HEP and self management of sx Pt will be able to walk > 40 min with pain < 3/10 Pt will initiate light plyo program for I progression Treatment Plan: Modalities to reduce pain, spasms and effusion. Manual therapy to restore motion and function. Therapeutic exercise to improve strength and flexibility. Neuromuscular re-education for posture and balance. Therapeutic activities to return to functional activities of daily living. Electronically signed by: [place] Patel PT Please sign and return to therapist. Thank you for your referral.
--- NOTE | 2025-03-08 08:29 | MHC.PT.DC ---
[facility] [place] Office [place] Office [place] Office [address] Nabor Mercado [address] [phone] F: [phone] F: [phone] F: [phone] F: [phone] Physical Therapy Discharge Report Diagnosis: sprain of unspecified ligament of R ankle R ankle sprain, ROM, gentle strength, proprioception training Date of Surgery: Date of Evaluation: 12/14/24 Date of Discharge: 03/08/25 Treatments to Date: 4 Cancellations to Date: 1 No Shows to Date: 0 Discharge Status: Improved Function Independent with HEP Discharge Summary: Pt with improved stability throughout R ankle and at this time, L ankle appears to have more medial-lateral instability. He tolerated progressive resistance exercises well and was educated on trialing light fast feet at home if he is hoping to do more sports again this fall. At this time, d/c to I HEP Electronically signed by: Florida Patel PT Please sign and return to therapist. Thank you for your referral.
== END 2025-03-08 08:30 | disposition home or self-care (01) ==
LOC: HO.PT 07:51
PROVIDERS: PCP Family Medicine; Visit Provider Physician Assistant
DX: S93.401A Sprain of unspecified ligament of right ankle, initial encounter (principal)
CPT/HCPCS: 97110; 97112; 97161; 97530